=== PATIENT | female | born 1960 | race Caucasian/White ===

== ENCOUNTER 2020-04-07 01:06 | Inpatient (IN) | payer MEDICAID ==
[2020-04-06 13:48] VITALS: BP 162/103
[~2020-04-07] VITALS: Ht 165.1 cm; Wt 48.3 kg
--- NOTE | 2020-04-07 01:19 | NUR ---
PT HERE FOR LOWER ABD PAIN. PT DENIES N/V/D. PA AT BEDSIDE
[2020-04-07] MEDS ORDERED: ONDANSETRON 2MG/ML, 2ML IVPush ONE (01:30)
[2020-04-07] MEDS ORDERED: SODIUM CHLORIDE FLUSH 10ML SYR IVF ONE (01:30)
[2020-04-07] MEDS ORDERED: MORPHINE SULFATE 4 MG/ML, 1ML ONE ×2 (01:40→02:55)
[2020-04-07] MEDS ORDERED: ONDANSETRON 2MG/ML, 2ML ONE (01:40)
[2020-04-07] MEDS: MORPHINE SULFATE 4 MG/ML, 1ML IVPush PRN ×2 (01:43→02:57)
--- NOTE | 2020-04-07 01:50 | NUR ---
piv placed and blood drawn. pt medicated. ua sent to lab. pt resting with no other needs at this time. call light in reach
[2020-04-07 01:55] LABS: ALANINE AMINOTRANSFERASE 11 U/L (12-78); ALBUMIN 3.5 g/dL (3.4-5.0); ANION GAP 9 mmol/L (5-15); CALCIUM 9.1 mg/dL (8.5-10.1); CHLORIDE 105 mmol/L (98-107); CREATININE 1.14 mg/dL (0.55-1.02)
[2020-04-07 01:58] LABS: ALKALINE PHOSPHATASE 105 U/L (45-117); BILIRUBIN,TOTAL 0.8 mg/dL (0.2-1.0); TOTAL PROTEIN 8.8 g/dL (6.4-8.2)
[2020-04-07 02:02] LABS: BASOPHILS # (AUTO) 0.04 x10^3/uL (0-0.1); BASOPHILS % (AUTO) 0 % (0-1); EOSINOPHILS # (AUTO) 0.26 x10^3/uL (0-0.4); EOSINOPHILS % (AUTO) 3 % (1-7); LYMPHOCYTES # (AUTO) 2.72 x10^3/uL (1-3.4); LYMPHOCYTES % (AUTO) 30 % (22-44); MD NO; MEAN CORPUSCULAR HEMOGLOBIN 29.1 pg (27.0-34.8); MEAN CORPUSCULAR HGB CONC 32.8 g/dL (32.4-35.8); MEAN CORPUSCULAR VOLUME 88.8 fL (80-100); MEAN PLATELET VOLUME 7.9 fL (7.4-10.4); MONOCYTES % (AUTO) 10 % (2-9); NEUTROPHILS # (AUTO) 5.09 x10^3/uL (1.8-6.8); NEUTROPHILS % (AUTO) 57 % (42-75); PLATELET COUNT 354 x10^3/uL (130-400); RED BLOOD COUNT 4.98 x10^6/uL (3.82-5.3); RED CELL DISTRIBUTION WIDTH 17.5 % (9.6-15.2)
[2020-04-07 02:10] LABS: MICROSCOPIC INDICATED
[2020-04-07] MEDS ORDERED: OMNIPAQUE 350 MG/ML, 100ML BOTTLE ONE (02:21)
[2020-04-07] MEDS ORDERED: PRAM0.12 PO (03:07)
--- NOTE | 2020-04-07 03:09 | NUR ---
PT REMEDICATED FOR PAIN. PA AT BEDSIDE. PT TO BE ADMITTED. MED REC COMPLETE. BP ELEVATED. WILL REASSESS AFTER PAIN MEDICATION HAS TAKEN EFFECT. CALL LIGHT IN REACH
[2020-04-07] MEDS ORDERED: POTASSIUM CHLORIDE 20 MEQ TAB.ER.PRT ONE (03:25)
[2020-04-07] MEDS ORDERED: SODIUM CHLORIDE 0.9% 1,000ML IVBOLUS ONE (03:30)
[2020-04-07] MEDS ORDERED: POTASSIUM CHLORIDE 20 MEQ TAB.ER.PRT PO ONE (03:30)
[2020-04-07] MEDS ORDERED: ONDANSETRON 2MG/ML, 2ML IVPush PRN ×2 (03:30→05:30)
[2020-04-07] MEDS ORDERED: MORPHINE SULFATE 4 MG/ML, 1ML IVPush PRN (03:30)
[2020-04-07] MEDS ORDERED: MORPHINE SULFATE 4 MG/ML, 1ML IVPush ONE (04:30)
[2020-04-07] MEDS ORDERED: hydrALAzine 20 MG/ML, 1ML IV PRN ×2 (04:30→05:00)
[2020-04-07] MEDS ORDERED: HYDRALAZINE MC SCH (05:00)
[2020-04-07] MEDS ORDERED: PHARMACY MAY ADJ FOR RENAL FX MC PRN (05:30)
[2020-04-07] MEDS ORDERED: hydrALAzine 20 MG/ML, 1ML IVPush PRN (05:30)
[2020-04-07] MEDS ORDERED: TRAZODONE 50MG TABLET PO PRN (05:30)
[2020-04-07] MEDS ORDERED: ACETAMINOPHEN 325 MG TABLET PO PRN (05:30)
[2020-04-07] MEDS ORDERED: POLYETHYLENE GLYCOL 17 GM PACKET PO PRN (05:30)
[2020-04-07] MEDS ORDERED: morphine SULFATE 10 MG/ML, 1ML IVPush PRN (05:30)
[2020-04-07] MEDS: NICOTINE 14MG/24 HR PATCH.TD24 TD SCH (05:48)
[2020-04-07] MEDS: METRONIDAZOLE PMX 500MG/100ML 100 ML IV SCH ×4 (05:48→23:07)
[2020-04-07] MEDS: LACTATED RINGERS 1,000 ML IV SCH ×2 (05:48→17:34)
[2020-04-07 05:56] VITALS: BP 187/79
[2020-04-07 06:58] LABS: AMPHETAMINE SCREEN, URINE Negative (Negative); BARBITURATE SCREEN, URINE Negative (Negative); BENZODIAZEPINE SCREEN, URINE Negative (Negative); CANNABINOID SCREEN, URINE Positive (Negative); COCAINE SCREEN, URINE Negative (Negative); METHADONE SCREEN, URINE Negative (Negative); OPIATE SCREEN, URINE Negative (Negative)
[2020-04-07 07:00] LABS: CHOL/HDL RATIO 5.5
[2020-04-07 07:23] VITALS: BP 118/74
[2020-04-07] MEDS ORDERED: PRAMIPEXOLE 0.125MG TABLET PO SCH ×2 (09:00→21:00)
[2020-04-07] MEDS: CIPROFLOXACIN/PMX 400MG/200ML 200 ML IV SCH ×3 (09:36→12:29)
[2020-04-07 13:20] VITALS: BP 113/71
[2020-04-07 13:36] LABS: HCT (SEDRATE) 42.6 % (34.6-47.8)
[2020-04-07] MEDS ORDERED: PROMETHAZINE 25 MG/ML, 1ML IM PRN (16:30)
[2020-04-07 19:30] VITALS: BP 156/95
[2020-04-07] MEDS: PRAMIPEXOLE 0.125MG TABLET PO SCH (23:07)
[2020-04-08] MEDS: CIPROFLOXACIN/PMX 400MG/200ML 200 ML IV SCH ×2 (00:04→12:06)
[2020-04-08 01:02] VITALS: BP 169/95
[2020-04-08] MEDS: LACTATED RINGERS 1,000 ML IV SCH (01:33)
[2020-04-08 05:10] LABS: BASOPHILS # (AUTO) 0.03 x10^3/uL (0-0.1); BASOPHILS % (AUTO) 0 % (0-1); CHLORIDE 105 mmol/L (98-107); EOSINOPHILS # (AUTO) 0.07 x10^3/uL (0-0.4); EOSINOPHILS % (AUTO) 1 % (1-7); LYMPHOCYTES # (AUTO) 1.39 x10^3/uL (1-3.4); LYMPHOCYTES % (AUTO) 15 % (22-44); MD NO; MEAN CORPUSCULAR HEMOGLOBIN 29.2 pg (27.0-34.8); MEAN CORPUSCULAR HGB CONC 32.4 g/dL (32.4-35.8); MEAN CORPUSCULAR VOLUME 90.2 fL (80-100); MEAN PLATELET VOLUME 7.8 fL (7.4-10.4); MONOCYTES # (AUTO) 0.74 x10^3/uL (0.2-0.8); MONOCYTES % (AUTO) 8 % (2-9); NEUTROPHILS # (AUTO) 6.99 x10^3/uL (1.8-6.8); NEUTROPHILS % (AUTO) 76 % (42-75); PLATELET COUNT 304 x10^3/uL (130-400); RED BLOOD COUNT 4.59 x10^6/uL (3.82-5.3); RED CELL DISTRIBUTION WIDTH 16.8 % (9.6-15.2)
[2020-04-08 05:22] LABS: ANION GAP 10 mmol/L (5-15); CALCIUM 8.7 mg/dL (8.5-10.1)
[2020-04-08] MEDS: METRONIDAZOLE PMX 500MG/100ML 100 ML IV SCH ×4 (05:27→23:31)
[2020-04-08] MEDS: NICOTINE 14MG/24 HR PATCH.TD24 TD SCH (05:29)
[2020-04-08 06:47] VITALS: BP 150/92
[2020-04-08 15:27] VITALS: BP 158/96
[2020-04-08 16:33] LABS: ANION GAP 9 mmol/L (5-15); CALCIUM 9.1 mg/dL (8.5-10.1); CHLORIDE 102 mmol/L (98-107); CREATININE 0.91 mg/dL (0.55-1.02)
[2020-04-08 19:24] VITALS: BP 174/104
[2020-04-08] MEDS: PRAMIPEXOLE 0.125MG TABLET PO SCH (19:44)
[2020-04-08 20:06] VITALS: BP 145/87
[2020-04-08] MEDS ORDERED: SODIUM CHLORIDE NASAL SPRAY 45ML BOTTLE NAS PRN (21:30)
[2020-04-09 00:18] VITALS: BP 154/93
[2020-04-09] MEDS: CIPROFLOXACIN/PMX 400MG/200ML 200 ML IV SCH ×2 (01:01→13:02)
[2020-04-09] MEDS: NICOTINE 14MG/24 HR PATCH.TD24 TD SCH (05:17)
[2020-04-09] MEDS: METRONIDAZOLE PMX 500MG/100ML 100 ML IV SCH ×2 (05:17→11:31)
[2020-04-09 05:44] LABS: BASOPHILS # (AUTO) 0.03 x10^3/uL (0-0.1); BASOPHILS % (AUTO) 0 % (0-1); EOSINOPHILS # (AUTO) 0.03 x10^3/uL (0-0.4); EOSINOPHILS % (AUTO) 0 % (1-7); LYMPHOCYTES # (AUTO) 1.57 x10^3/uL (1-3.4); LYMPHOCYTES % (AUTO) 19 % (22-44); MD NO; MEAN CORPUSCULAR HEMOGLOBIN 29.3 pg (27.0-34.8); MEAN CORPUSCULAR HGB CONC 33.2 g/dL (32.4-35.8); MEAN CORPUSCULAR VOLUME 88.3 fL (80-100); MEAN PLATELET VOLUME 7.5 fL (7.4-10.4); MONOCYTES # (AUTO) 0.89 x10^3/uL (0.2-0.8); MONOCYTES % (AUTO) 11 % (2-9); NEUTROPHILS # (AUTO) 5.67 x10^3/uL (1.8-6.8); NEUTROPHILS % (AUTO) 69 % (42-75); PLATELET COUNT 298 x10^3/uL (130-400); RED BLOOD COUNT 4.72 x10^6/uL (3.82-5.3); RED CELL DISTRIBUTION WIDTH 16.8 % (9.6-15.2)
[2020-04-09 05:47] LABS: ANION GAP 9 mmol/L (5-15); CALCIUM 8.6 mg/dL (8.5-10.1); CHLORIDE 103 mmol/L (98-107)
[2020-04-09 05:48] LABS: CREATININE 0.84 mg/dL (0.55-1.02)
[2020-04-09 07:05] VITALS: BP 131/84
[2020-04-09] MEDS ORDERED: POTASSIUM CHLORIDE 40 MEQ in SODIUM CHLORIDE 0.9% 500 ML IV ONE (09:30)
[2020-04-09] MEDS ORDERED: METR500T PO (17:59)
[2020-04-09] MEDS ORDERED: LEVO750T26 PO (17:59)
== END 2020-04-09 14:20 | disposition left against medical advice (07) | DRG 249 ==
LOC: ED 03:12 → EDIP 03:15 → 3N 03:55
PROVIDERS: ADMIT Family Medicine; ATTEND Hospitalist
DX: K52.9 Noninfective gastroenteritis and colitis, unspecified (principal); N17.9 Acute kidney failure, unspecified; D73.3 Abscess of spleen; D73.89 Other diseases of spleen; B86 Scabies; E87.6 Hypokalemia; F12.90 Cannabis use, unspecified, uncomplicated; F17.210 Nicotine dependence, cigarettes, uncomplicated; G25.81 Restless legs syndrome; N94.89 Other specified conditions associated with female genital organs and menstrual cycle; I73.9 Peripheral vascular disease, unspecified; I25.10 Atherosclerotic heart disease of native coronary artery without angina pectoris; I70.0 Atherosclerosis of aorta; I25.2 Old myocardial infarction; Z86.73 Personal history of transient ischemic attack (TIA), and cerebral infarction without residual deficits; Z95.5 Presence of coronary angioplasty implant and graft; Z88.0 Allergy status to penicillin; Z88.8 Allergy status to other drugs, medicaments and biological substances; Z53.29 Procedure and treatment not carried out because of patient's decision for other reasons
CPT/HCPCS: 36415; 70450; 71250; 74177; 80048; 80053; 80061; 80307; 81001; 82378; 83605; 83690; 83735; 85025; 85651; 86140; 86301; 86304; 87040; 87086; G0378; J0744; J2405; J2550; J3480; Q9967; J0360; J2270; J7030; J7040; J7120

== ENCOUNTER 2021-04-06 20:08 | Emergency (ER) | payer MEDICAID ==
[~2021-04-06] VITALS: Ht 167.6 cm; Wt 45.4 kg
[~2021-04-06 20:08] MED LIST: LEVO750T26 PO; METR500T PO; PRAM0.12 PO
--- NOTE | 2021-04-06 20:18 | NUR ---
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
--- NOTE | 2021-04-06 20:35 | NUR ---
PT PRESENTS IN THE ED WITH NUMBNESS IN LEFT ARM. PT STATED IT BEGAN AROUND 10 AM THIS MORNING AND HAS GOTTEN WORSE. 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 PT IN GOWN AND HOOKED TO MONITORS, RESTING ON THE GURNEY, AT BEDSIDE. PT HAVING A HARD TIME SEARCHING FOR WORDS, BUT SAYS THAT HAS BEEN HAPPENING SINCE LAST CVA AND THIS HER NORMAL SPEACH AT THIS TIME. ERP AT BEDSIDE.
[2021-04-06] MEDS ORDERED: SODIUM CHLORIDE FLUSH 10ML SYR IVF ONE (21:00)
[2021-04-06] MEDS ORDERED: SODIUM CHLORIDE 0.9% 1,000ML IVBOLUS ONE (21:00)
--- NOTE | 2021-04-06 21:41 | NUR ---
18 G IV STARTED TO RIGHT AC VIA US. PT TOLERATED PROCEDURE WELL, IVF STARTED. PT RESTING COMFORTABLY ON GURNEY, DENIES NEEDS AT THIS TIME.
--- NOTE | 2021-04-06 22:04 | NUR ---
REPORT FROM MARTHA THOMAS
[2021-04-06 22:10] LABS: BASOPHILS % (AUTO) 1 % (0-1); EOSINOPHILS % (AUTO) 3 % (1-7); LYMPHOCYTES % (AUTO) 29 % (22-44); MEAN CORPUSCULAR HEMOGLOBIN 29.6 pg (27.0-34.8); MEAN CORPUSCULAR HGB CONC 34.5 g/dL (32.4-35.8); MEAN PLATELET VOLUME 8.1 fL (7.4-10.4); MONOCYTES % (AUTO) 9 % (2-9); NEUTROPHILS % (AUTO) 59 % (42-75); PLATELET COUNT 335 x10^3/uL (130-400); RED BLOOD COUNT 4.64 x10^6/uL (3.82-5.3); RED CELL DISTRIBUTION WIDTH 16.6 % (9.6-15.2)
[2021-04-06 22:14] LABS: MD NO
[2021-04-06 22:22] LABS: ALANINE AMINOTRANSFERASE 10 U/L (12-78); ALBUMIN 3.6 g/dL (3.4-5.0); ANION GAP 6 mmol/L (5-15); CALCIUM 9.2 mg/dL (8.5-10.1); CHLORIDE 104 mmol/L (98-107); CREATININE 1.11 mg/dL (0.55-1.02)
[2021-04-06 22:24] LABS: ALKALINE PHOSPHATASE 113 U/L (45-117); BILIRUBIN,TOTAL 0.6 mg/dL (0.2-1.0); TOTAL PROTEIN 8.9 g/dL (6.4-8.2)
[2021-04-06 22:48] VITALS: BP 149/93
--- NOTE | 2021-04-06 23:05 | NUR ---
Pt ambulatory with steady gait to restroom
== END 2021-04-06 23:11 | disposition home or self-care (01) ==
LOC: ED 23:05
DX: R20.2 Paresthesia of skin (principal); G62.9 Polyneuropathy, unspecified; R51.9 Headache, unspecified; I45.19 Other right bundle-branch block; F17.210 Nicotine dependence, cigarettes, uncomplicated; I25.2 Old myocardial infarction; Z86.73 Personal history of transient ischemic attack (TIA), and cerebral infarction without residual deficits; Z85.850 Personal history of malignant neoplasm of thyroid; Z88.0 Allergy status to penicillin
CPT/HCPCS: 36415; 70450; 72125; 80053; 85025; 93005; 96360; 96361; 99285; 99406; J7030